=== PATIENT | female | born 1955 | race Caucasian/White ===

== ENCOUNTER 2020-09-20 18:40 | Emergency (ER) | payer OTHER ==
[~2020-09-20] VITALS: Ht 165.1 cm; Wt 72.6 kg
[2020-09-20] MEDS ORDERED: ONDANSETRON HCL INJ 2MG/ML 2ML 2 MG/ML VIAL IV STA (19:26)
[2020-09-20] MEDS ORDERED: SODIUM CHLORIDE 0.9% 1000ML 1,000 ML IV ONE (19:30)
[2020-09-20] MEDS ORDERED: SODIUM CHLORIDE 0.9% 1000ML 1,000 ML ONE ×2 (19:37→20:36)
[2020-09-20] MEDS ORDERED: FAMOTIDINE 20 MG/2 ML VIAL IV STA (20:26)
[2020-09-20] MEDS ORDERED: SODIUM CHLORIDE 0.9% 1000ML 1,000 ML IV SCH (20:30)
[2020-09-20] MEDS ORDERED: FAMOTIDINE 20 MG/2 ML VIAL IV ONE (20:37)
[2020-09-20] MEDS ORDERED: ZOFRAN4 MG PO (22:07)
[2020-09-20] MEDS ORDERED: FAMOTIDINE40 MG PO (22:08)
== END 2020-09-20 22:38 | disposition home or self-care (01) ==
LOC: FSED 20:27
DX: R11.10 Vomiting, unspecified (principal); K29.70 Gastritis, unspecified, without bleeding; B34.9 Viral infection, unspecified; E11.65 Type 2 diabetes mellitus with hyperglycemia; E78.5 Hyperlipidemia, unspecified
CPT/HCPCS: 71046; 80048; 80076; 81003; 85025; 99284; J2405; J7030; 93005